=== PATIENT | female | born 1945 | race Caucasian/White ===

== ENCOUNTER 2017-04-08 20:40 | Emergency (ER) | payer MEDICARE ==
--- NOTE | 2017-04-08 21:02 | Emergency Department Record ---
History of Present Illness - General Chief complaint: Extremity Problem Stated complaint: RT ARM INJURY Time Seen by Provider: 04/08/17 20:56 Source: Patient Mode of Arrival: Ambulatory Limitations: No limitations - History of Present Illness Initial comments: 71 yo female presents to ED with a CC of swelling and mild pain over the right forearm. Patient reports that her arm was struck with a spinning handle from a farm elevator several hours ago, only came to the ED for evaluation due to the swelling. Patient denies health problems at her baseline, only takes aspirin at her baseline. MD Complaint: Extremity pain, Extremity swelling Onset/Timin -: Hour(s) Location: Right, Forearm History of Same: No Severity scale (1-10): 1 Quality: Aching Consistency: Constant Improves with: Nothing Worsens with: Nothing Associated Symptoms: Denies other symptoms - Related Data Home Medications Medication Instructions Recorded Confirmed Last Taken Aspirin [Aspirin EC] 325 mg PO DAILY 04/08/17 04/08/17 04/08/17 Allergies Allergy/AdvReac Type Severity Reaction Status Date / Time No Known Drug Allergies Allergy Verified 02/25/15 07:15 Travel Screening - Travel/Exposure Within Last 30 Days Have you traveled within the last 30 days?: No Review of Systems Constitutional: Denies: Chills, Fever, Malaise, Night sweats Eyes: Denies: Eye discharge, Eye pain ENT: Denies: Congestion, Ear pain Respiratory: Denies: Cough, Dyspnea Cardiovascular: Denies: Chest pain, Dyspnea on exertion Endocrine: Denies: Fatigue, Heat or cold intolerance Gastrointestinal: Denies: Abdominal pain, Nausea, Vomiting Genitourinary: Denies: Incontinence, Retention Musculoskeletal: Reports: Arthralgia. Denies: Back pain, Gout, Joint swelling Skin: Denies: Bruising, Change in color Neurological: Denies: Abnormal gait, Confusion, Headache, Seizure Psychiatric: Denies: Anxiety Hematological/Lymphatic: Denies: Anemia, Blood Clots Past Medical History - SOCIAL HISTORY Smoking Status: Former smoker Alcohol Use: None Drug Use: None - RESPIRATORY Hx Respiratory Disorders: No - CARDIOVASCULAR Hx Cardio Disorders: No - NEURO Hx Neuro Disorders: No - GI Hx GI Disorders: No - Hx Genitourinary Disorders: No - ENDOCRINE Hx Endocrine Disorders: No - MUSCULOSKELETAL Hx Musculoskeletal Disorders: No - PSYCH Hx Psych Problems: No - HEMATOLOGY/ONCOLOGY Hx Hematology/Oncology Disorders: No Family Medical History Any Significant Family History?: Yes Hx HTN: Brother/Sister Physical Exam - General General Appearance: Alert, Oriented x3, Cooperative, No acute distress Limitations: No limitations - Head Head exam: Atraumatic, Normocephalic, Normal inspection Head exam detail: negative: Abrasion, Contusion, Goldberg's sign, General tenderness, Hematoma, Laceration - Eye Eye exam: Normal appearance. negative: Conjunctival injection, Periorbital swelling, Periorbital tenderness, Scleral icterus - ENT Ear exam: negative: Auricular hematoma, Auricular trauma Nasal Exam: negative: Active bleeding, Discharge, Dried blood Mouth exam: negative: Drooling, Laceration, Muffled voice, Tongue elevation - Neck Neck exam: Normal inspection. negative: Meningismus, Tenderness - Respiratory Respiratory exam: Normal lung sounds bilaterally. negative: Rales, Respiratory distress, Rhonchi, Stridor - Cardiovascular Cardiovascular Exam: Regular rate, Normal rhythm, Normal heart sounds - GI/Abdominal GI/Abdominal exam: Soft. negative: Rebound, Rigid, Tenderness - Rectal Rectal exam: Deferred - exam: Deferred - Extremities Extremities exam: Tenderness, Other (Large amount of STS to the dorsal mid- forearm c/w hematoma, FROM, minimal pain with palpation). negative: Calf tenderness, Pedal edema - Back Back exam: Denies: CVA tenderness (R), CVA tenderness (L) - Neurological Neurological exam: Alert, Normal gait, Oriented X3 - Psychiatric Psychiatric exam: Normal affect, Normal mood - Skin Skin exam: Normal color. negative: Abrasion Type of lesion: negative: abrasion Course Vital Signs 04/08/17 20:50 Temperature 98 F Pulse Rate 102 H Respiratory 20 Rate Blood Pressure 145/72 Pulse Ox 96 - Reevaluation(s) Reevaluation #1: 04/08/17 21:13 Right forearm: No acute fracture identified. Patient's examination appears c/w hematoma, no evidence of compartment syndrome on examination. Patient has no numbness, tingling, or significant pain symptoms on examination, no clinical suspicion for compartment syndrome on examination. Patient appears stable for discharge with instructions to return for any of the above symptoms. Patient appears stable for discharge at this time. 04/08/17 21:17 Disposition Disposition: Discharge Clinical Impression: Hematoma Disposition: Home, Self-Care Condition: (2) Stable Instructions: Hematoma (ED) Additional Instructions: Return to ED if your symptoms worsen or if you have any concerns. Follow-up with your family doctor in 1 week as directed. Forms: Patient Portal Access Time of Disposition: 21:17
--- NOTE | 2017-04-09 22:27 | RADIOLOGY REPORT ---
EXAM: FOREARM, RIGHT HISTORY: INJURY RIGHT FOREARM ON HAY ELEVATOR. COMPARISON: None. ENCOUNTER: Initial. TECHNIQUE: Two-view right forearm. FINDINGS: No acute fracture. Extensive soft tissue swelling dorsal mid right forearm measuring up to 11 x 3 cm consistent with hematoma. IMPRESSION: 1. NEGATIVE FOR ACUTE FRACTURE OF THE RIGHT FOREARM. 2. PROMINENT HEMATOMA DORSAL ASPECT MID RIGHT FOREARM. JOB NUMBER: [id number] MTDD
== END 2017-04-08 21:29 | disposition home or self-care (01) ==
LOC: ER 20:40
DX: S50.11XA Contusion of right forearm, initial encounter (principal); W30.2XXA Contact with hay derrick, initial encounter
CPT/HCPCS: 99283